=== PATIENT | female | born 1985 | race Caucasian/White ===

== ENCOUNTER 2017-05-05 13:39 | Emergency (ER) | payer OTHER ==
[~2017-05-05] VITALS: Ht 157.5 cm; Wt 72.6 kg
[~2017-05-05 13:39] MED LIST: AFRIN15 M1; ALDACTONE; ALDACTONE PO; AMOXICILLIN500 M1; ASPIRIN PO; DIFLUCAN; FLONASE 0.05% N16 G1; FLONASE 0.05% N16 G1 IH; GYNAZOLE VG; IBUPROFEN800 MG; IBUPROFEN800 MG PO; NASAL SPRAY; PERCOCET 10-651 EACH; PRENATAL VITAMI1 TA3 PO; PRILOSEC PO; PROZAC; PROZAC PO; ROBAXIN500 MG PO; SUDAFED PO; TYLENOL #3 PO; VALTREX; VOLTAREN50 MG PO; ZOFRAN ODT4 MG/UDTAB PO; ZYRTEC PO; ZYRTEC10 M2 PO
== END 2017-05-05 16:23 | disposition home or self-care (01) ==
LOC: CED 13:39 → CFTX 13:39
DX: J02.9 Acute pharyngitis, unspecified (principal)
CPT/HCPCS: 87651; 99284